=== PATIENT | female | born 1985 | race Caucasian/White ===

== ENCOUNTER → 2020-11-05 | Outpatient (CLI) | payer BC ==
--- NOTE | 2020-11-05 13:33 | P.HPBAR ---
Bariatric H&P - History & Physicial H&P Date: 11/05/20 History & Physicial: Visit/CC: Patient initial contact: Initial weight: Initial weight in pounds: Height: Initial BMI: Last weight: Current weight: Current weight in pounds: Current BMI: [place] body weight (based on NIH guidelines): Excess body weight loss: The patient is a 35 year-old F who presents for Bariatric Assessment. She is looking into the sleeve. No prior weight loss surgery. She has tried Adipex, Weight watchers, keto, and prescription medications for weight loss. Most weight loss is 25 pounds with Adipex. Her dad and father side with obesity. She reports lower back pain, right greater than left knee pain, both ankles, and both hips but denies foot pain. She reports heartburn and she takes over the counter for her symptoms. She has smoked in the past. No chronic diarrhea. Her uncle has Crohns disease. Highest weight is 245 pounds. She reports trouble with sleep and had a sleep apnea study with CPAP machine. She reports DVTs in her mother with brain aneurysm. She denies easy bruising or bleeding. She still has her gallbladder. She denies family history of gallbladder disease. She has excellent control of blood pressure with HCTZ 101/69. [facility] [place] risk [place] describe with any risk of 5.86% Bariatric Checklist Checklist: Plan: Checklist: EGD: 1. Hiatal hernia: 2. H. Pylori: HgbA1c: Vitamin D: Smoking: Primary care physician referral: Psychiatry clearance: Cardiology clearance: Sleep study: Diet journal: VTE risk score: VTE risk level: Rehab needs at discharge:
[2020-11-05 13:39] VITALS: BP 101/69; PULSE 99; RESP 18; TEMP 98.4; BMI 43.0
[2020-11-05 14:48] LABS: HCT 39.2 % (34.0-46.0); HGB 13.7 gm/dL (11.4-16.0); MCH 30.8 pg (25.0-35.0); MCHC 35.1 g/dL (31.0-37.0); MCV 87.7 fL (80.0-100.0); Mean Platelet Volume 6.5; Platelet Count 281 k/uL (150-450); RBC 4.47 m/uL (3.80-5.40); RDW 13.7 % (11.5-15.5); WBC 10.1 k/uL (3.8-10.6)
[2020-11-05 15:03] LABS: INR 0.9 (<1.2); Prothrombin Time 9.8 sec (9.0-12.0)
[2020-11-05 15:04] LABS: Partial Thromboplastin Time 23.4 sec (22.0-30.0)
[2020-11-05 21:01] LABS: Hemoglobin A1C 5.5 % (4.0-6.0)
[2020-11-06 01:10] LABS: Ferritin 47.1 ng/mL (10.0-291.0); Folate, Serum 8.5 ng/mL
[2020-11-06 03:35] LABS: % Iron Saturation 11.4 (12.00-45.00); Albumin 4.4 g/dL (3.80-4.90); Albumin/Globulin Ratio 1.83 (1.60-3.17); Anion Gap 8.9 mmol/L (4.00-12.00); Calcium 9.4 mg/dL (8.7-10.3); Carbon Dioxide 27.1 mmol/L (21.6-31.8); Chol/HDL Ratio 5.75; Globulin 2.4 g/dL (1.6-3.3); Non-African American GFR(CKD) 116.4 (60.0-200.0); Phosphorus 3.9 mg/dL (2.4-5.1); Potassium 3.8 mmol/L (3.5-5.5); Total Bilirubin 0.2 mg/dL (0.3-1.2); Total Protein 6.8 g/dL (6.2-8.2)
[2020-11-07 07:02] LABS: Vit B1(Thiamine) 63 ug/L (38-122)
[2020-11-07 07:21] LABS: Vitamin A 37 ug/dL (38-106)
[2020-11-07 14:18] LABS: Zinc, Serum 42 ug/dL (60-130)
[2020-11-09 16:59] LABS: Selenium 115 mcg/L (63-160)
== END ==
LOC: BARWHC3 12:47
PROVIDERS: ATTEND Surgery Plastic and Reconstructive Surgery
DX: E66.01 Morbid (severe) obesity due to excess calories (principal); E89.1 Postprocedural hypoinsulinemia; D50.8 Other iron deficiency anemias; K90.89 Other intestinal malabsorption; E55.9 Vitamin D deficiency, unspecified; K74.1 Hepatic sclerosis; N19 Unspecified kidney failure; K50.90 Crohn's disease, unspecified, without complications; Z71.51 Drug abuse counseling and surveillance of drug abuser
CPT/HCPCS: 80053; 80061; 82306; 82525; 82607; 82728; 82746; 83036; 83540; 83550; 83721; 83735; 83970; 84100; 84134; 84255; 84425; 84443; 84590; 84630; 85027; 85610; 85730; 93005; 99203

== ENCOUNTER 2020-12-22 07:31 | Day surgery (SDC) | payer BC ==
[2020-12-18 12:05] VITALS: BMI 43.5
[~2020-12-22 07:31] MED LIST: LACTATED RINGERS 1,000 ML IV SCH
--- NOTE | 2020-12-22 07:37 | P.GSHP ---
History of Present Illness H&P Date: 12/22/20 CHIEF COMPLAINT: GERD HISTORY OF PRESENT ILLNESS: The patient is a 35-year-old female who presents reports gastroesophageal reflux disease. Upper endoscopy was offered for further evaluation and management. PAST MEDICAL HISTORY: Please see list. PAST SURGICAL HISTORY: Please see list. MEDICATIONS: Please see list. ALLERGIES: Please see list. SOCIAL HISTORY: No illicit drug use FAMILY HISTORY: No reports of Crohn disease or ulcerative colitis. REVIEW OF ORGAN SYSTEMS: CONSTITUTIONAL: No reports of fevers or chills. GI: Denies any blood in stools or constipation. PHYSICAL EXAM: VITAL SIGNS: Stable GENERAL: Well-developed and pleasant in no acute distress. HEENT: No scleral icterus. Extraocular movements grossly intact. Moist buccal mucosa. NECK: Supple without lymphadenopathy. CHEST: Unlabored respirations. Equal bilateral excursions. CARDIOVASCULAR: Regular rate and rhythm. Distal 2+ pulses. ABDOMEN: Soft, nondistended. MUSCULOSKELETAL: No clubbing, cyanosis, or edema. ASSESSMENT: 1. Gastroesophageal reflux disease PLAN: 1. Recommend proceeding with an upper endoscopy Past Medical History Past Medical History: GERD/Reflux, Hypertension, Skin Disorder, Sleep Apnea/CPAP/BIPAP Additional Past Medical History / Comment(s): basal cell/squamous cell cancer. uses CPAP. bronchitis. History of Any Multi-Drug Resistant Organisms: None Reported Past Surgical History: Adenoidectomy, Tonsillectomy Additional Past Surgical History / Comment(s): wisdom teeth. basal cell/squamous cells removed. Past Anesthesia/Blood Transfusion Reactions: No Reported Reaction Smoking Status: Former smoker - Past Family History Mother Family Medical History: Deep Vein Thrombosis (DVT) Additional Family Medical History / Comment(s): brain aneuyrsm Medications and Allergies Home Medications Medication Instructions Recorded Confirmed Type Multivitamins, Thera [Multivitamin 2 tab PO DAILY 11/05/20 12/18/20 History (formulary)] Sertraline [Zoloft] 200 mg PO QAM 11/05/20 12/18/20 History hydroCHLOROthiazide [Hydrodiuril] 50 mg PO QAM 11/05/20 12/18/20 History Ergocalciferol [Vitamin D2 (1250 50,000 unit PO FR 11/06/20 12/18/20 History Mcg = 92392 Iu)] Ferrous Sulfate [Feosol] 325 mg PO DAILY 12/18/20 12/18/20 History Ubidecarenone [Co Q-10] 100 mg PO DAILY 12/18/20 12/18/20 History Vitamin A Acetate [Vitamin A] 10,000 unit SL DAILY 12/18/20 12/18/20 History Zinc 50 mg PO DAILY 12/18/20 12/18/20 History Allergies Allergy/AdvReac Type Severity Reaction Status Date / Time codeine Allergy Rash and Verified 12/18/20 12:01 nasea tetracycline Allergy Hives and Verified 12/18/20 12:01 nausea
[2020-12-22 08:02] VITALS: RESP 16; TEMP 97.5
[2020-12-22] MEDS ORDERED: LIDOCAINE 1% (10MG/ML) FOR IV START INTRADERMA ONE (08:06)
[2020-12-22] MEDS ORDERED: PROPOFOL 10 MG/ML 20 ML VIAL IV ONE (08:08)
[2020-12-22] MEDS ORDERED: LIDOCAINE 1% INJ 10MG/ML (20 ML MDV) ONE (08:08)
--- NOTE | 2020-12-22 08:21 | P.PCN ---
Date of Procedure: 12/22/20 Description of Procedure: PREOPERATIVE DIAGNOSIS: Gastroesophageal reflux disease. Morbid obesity. POSTOPERATIVE DIAGNOSIS: Morbid obesity. Gastritis. Gastroesophageal reflux disease. Diaphragmatic hiatal hernia OPERATION: Esophagogastroduodenoscopy with biopsies along antrum. SURGEON: Shital Khan MD ANESTHESIA: MAC. INDICATIONS: The patient is a 35-year-old female who presents with a history of reflux disease. Benefits and risks of the procedure were described. Informed consent was obtained. DESCRIPTION: The patient was brought into the endoscopy suite and laid in the left lateral decubitus position. An Olympus gastroscope was passed along the posterior oropharynx down to the distal esophagus where the squamocolumnar junction was encountered at 33 cm from the incisors. The stomach was entered and no bile reflux was found. Additional findings are listed below. Biopsies with cold f orceps were obtained of the antrum. The first through third portion of the duodenum was examined and unremarkable. Retroflexion of the scope confirmed Hill grade 3 lower esophageal valve. The squamocolumnar junction demonstrated LA grade C erosive esophagitis. The stomach was desufflated. The patient tolerated the procedure well. FINDINGS: Squamocolumnar junction 33 cm from the incisors. Diaphragmatic hiatus at 35 cm. Hiatal hernia, 2 cm Hill grade 3 lower esophageal valve. LA grade C erosive esophagitis. No active duodenitis. Chronic gastritis RECOMMENDATIONS: 1. Omeprazole 40 mg daily for 2 weeks described 2. Recommend esophagram to elucidate extent of sliding hiatal hernia Plan - Discharge Summary Discharge Rx Participant: No New Discharge Prescriptions: New Omeprazole [PriLOSEC] 40 mg PO DAILY #14 cap Continue Multivitamins, Thera [Multivitamin (formulary)] 2 tab PO DAILY Ergocalciferol [Vitamin D2 (1250 Mcg = 04309 Iu)] 50,000 unit PO FR Zinc 50 mg PO DAILY hydroCHLOROthiazide [Hydrodiuril] 50 mg PO QAM Sertraline [Zoloft] 200 mg PO QAM Ferrous Sulfate [Iron (65 MG Elemental)] 325 mg PO DAILY Vitamin A Acetate [Vitamin A] 10,000 unit SL DAILY Ubidecarenone [Co Q-10] 100 mg PO DAILY Discharge Medication List Multivitamins, Thera [Multivitamin (formulary)] 2 tab PO DAILY 11/05/20 [History] Sertraline [Zoloft] 200 mg PO QAM 11/05/20 [History] hydroCHLOROthiazide [Hydrodiuril] 50 mg PO QAM 11/05/20 [History] Ergocalciferol [Vitamin D2 (1250 Mcg = 39167 Iu)] 50,000 unit PO FR 11/06/20 [History] Ferrous Sulfate [Iron (65 MG Elemental)] 325 mg PO DAILY 12/18/20 [History] Ubidecarenone [Co Q-10] 100 mg PO DAILY 12/18/20 [History] Vitamin A Acetate [Vitamin A] 10,000 unit SL DAILY 12/18/20 [History] Zinc 50 mg PO DAILY 12/18/20 [History] Omeprazole [PriLOSEC] 40 mg PO DAILY #14 cap 12/22/20 [Rx] [facility]Ref[facility] [place] [facility] [place] [facility]20 Patient Instructions/Handouts: Hiatal Hernia (DC), Gastroesophageal Reflux Disease (DC), Gastritis (DC), Diet for Stomach Ulcers and Gastritis (GEN) Discharge Disposition: HOME SELF-CARE
[2020-12-22 08:39] VITALS: BP 107/72; PULSE 97
== END 2020-12-22 09:00 | disposition home or self-care (01) ==
LOC: ORWHC2ENDO 07:31
PROVIDERS: ATTEND Surgery Plastic and Reconstructive Surgery
DX: K44.9 Diaphragmatic hernia without obstruction or gangrene (principal); J39.2 Other diseases of pharynx; K29.50 Unspecified chronic gastritis without bleeding; I10 Essential (primary) hypertension; Z85.828 Personal history of other malignant neoplasm of skin; Z79.899 Other long term (current) drug therapy; Z88.1 Allergy status to other antibiotic agents; Z88.5 Allergy status to narcotic agent; K21.00 Gastro-esophageal reflux disease with esophagitis, without bleeding; E78.5 Hyperlipidemia, unspecified; G47.30 Sleep apnea, unspecified
CPT/HCPCS: 81025; 88305; 88342; 43239; J2001; J2704

== ENCOUNTER → 2021-01-08 | Outpatient (CLI) | payer BC ==
--- NOTE | 2021-01-08 11:34 | FL ---
EXAMINATION TYPE: FL barium swallow DATE OF EXAM: 01/08/2021 CLINICAL INDICATION: 35-year-old female R13.10, dysphasia. Nausea/vomiting and complaint of reflux. E ndoscopy 3 weeks ago showed a hiatal hernia and a polyp in the throat. COMPARISON: None Total Fluoroscopy Time: 1 minute 56 seconds 34 images obtained. FINDINGS: The swallowing mechanism is normal and hypopharyngeal anatomy is preserved. Unable to clearly identi fy any suspicious polyp or space-occupying mucosal lesion. The cervical and thoracic portions have a normal course and caliber and normal motility. The mucosa is normal and no persistent filling defect is encountered. There is a small sliding hiatal hernia demonstrated. Gastroesophageal reflux could not be elicited by Valsalva or positional maneuvers IMPRESSION: 1. Small sliding hiatal hernia. We were unable to elicit gastroesophageal reflux during the course of the exam. 2. Patient's reported throat polyp not clearly identified but can be better assessed by ENT.
== END | disposition home or self-care (01) ==
LOC: RADUSWWP 09:55
PROVIDERS: ATTEND Surgery Plastic and Reconstructive Surgery
DX: K44.9 Diaphragmatic hernia without obstruction or gangrene (principal); R13.10 Dysphagia, unspecified
CPT/HCPCS: 74220

== ENCOUNTER → 2021-03-30 | Outpatient (CLI) | payer BC ==
[2021-03-30 14:24] VITALS: BMI 44.9
== END ==
LOC: BARWHC3 08:32
PROVIDERS: ATTEND Surgery Plastic and Reconstructive Surgery
DX: E66.01 Morbid (severe) obesity due to excess calories (principal); Z71.3 Dietary counseling and surveillance
CPT/HCPCS: 97804

== ENCOUNTER → 2021-05-05 | Outpatient (CLI) | payer BC ==
[2021-05-05 11:15] LABS: Basophils # (A) 0.1 k/uL (0-0.2); Basophils % (A) 1 %; Eosinophils # (A) 0.2 k/uL (0-0.7); Eosinophils % (A) 2 %; HCT 42.7 % (34.0-46.0); HGB 14.5 gm/dL (11.4-16.0); Lymphocytes # (A) 2.5 k/uL (1.0-4.8); Lymphocytes % (A) 26 %; MCH 30.9 pg (25.0-35.0); MCHC 33.8 g/dL (31.0-37.0); MCV 91.4 fL (80.0-100.0); Mean Platelet Volume 6.6; Monocytes # (A) 0.5 k/uL (0-1.0); Monocytes % (A) 6 %; Neutrophils # (A) 5.9 k/uL (1.3-7.7); Neutrophils % (A) 62 %; Platelet Count 295 k/uL (150-450); RBC 4.67 m/uL (3.80-5.40); RDW 14.1 % (11.5-15.5); WBC 9.4 k/uL (3.8-10.6)
[2021-05-05 11:37] LABS: ALT 31 U/L (4-34); AST 29 U/L (14-36); African American GFR (CKD) >90 (>60 ml/min/1.73 sqM); Albumin 4.1 g/dL (3.5-5.0); Alkaline Phosphatase 45 U/L (38-126); Anion Gap 8 mmol/L; Blood Urea Nitrogen 11 mg/dL (7-17); Calcium 9.7 mg/dL (8.4-10.2); Carbon Dioxide 26 mmol/L (22-30); Chloride 102 mmol/L (98-107); Glucose 87 mg/dL (74-99); Non-African American GFR(CKD) >90 (>60 ml/min/1.73 sqM); Potassium 4.3 mmol/L (3.5-5.1); Sodium 136 mmol/L (137-145); Total Bilirubin 0.2 mg/dL (0.2-1.3); Total Protein 7.1 g/dL (6.3-8.2)
== END | disposition home or self-care (01) ==
LOC: LABPAT 09:23
PROVIDERS: ATTEND Surgery Plastic and Reconstructive Surgery
DX: Z01.812 Encounter for preprocedural laboratory examination (principal)
CPT/HCPCS: 36415; 80053; 85025

== ENCOUNTER 2021-05-11 10:03 | Inpatient (IN) | payer BC ==
[~2021-05-11 10:03] MED LIST changes: +CHLORHEXIDINE GLUCONATE 15 ML CUP MUCOUS MEM PRN; +DEXAMETHASONE SOD PHOSPHATE 4 MG/ML 1 ML VIAL IV ONE; +ENOXAPARIN 40 MG/0.4 ML SYRINGE SQ PRN; -LACTATED RINGERS 1,000 ML IV SCH; +LIDOCAINE 1% (10MG/ML) FOR IV START INTRADERMA PRN; +MIDAZOLAM 2 MG/2 ML VIAL IV PRN; +ONDANSETRON 4 MG/2 ML VIAL IVP ONE; +PANTOPRAZOLE 40 MG/10 ML VIAL IVP PRN
[2021-05-11] MEDS: LACTATED RINGERS 1,000 ML IV SCH (10:40)
[2021-05-11 10:42] LABS: Glucose,Whole Blood 101 mg/dL (75-99)
--- NOTE | 2021-05-11 10:47 | P.GSHP ---
History of Present Illness H&P Date: 05/11/21 CHIEF COMPLAINT: Morbid obesity. HISTORY OF PRESENT ILLNESS: Margaret Woodruff is a 35-year-old female who comes with lifelong morbid obesity. She is looking into the sleeve gastrectomy. As a result of her morbid obesity, she has developed osteoarthritis of the knees, lower back, hips, sleep apnea and hypertensive heart disease. At height of 5 feet 2.5 inches, her ideal body weight is 135 pounds. Her highest weight is 245 pounds and body mass index of 44.2. PAST MEDICAL HISTORY: 1. Morbid obesity due to excess calories 2. Body mass index of 44.2, initial 3. Osteoarthritis of the knees. 4. Osteoarthritis of the lower back. 5. Osteoarthritis of the ankles 6. Osteoarthritis of the hips 7. Hypertensive heart disease. 8. Gastroesophageal reflux disease 9. Obstructive sleep apnea 10. Basal cell skin cancer 11. Generalized anxiety disorder 12. Depressive disorder PAST SURGICAL HISTORY: 1. Adenoidectomy 2. Tonsillectomy HOME MEDICATIONS: Home Medications Medication Instructions Recorded Confirmed Multivitamins, Thera [Multivitamin 2 tab PO DAILY 11/05/20 12/31/20 (formulary)] Sertraline [Zoloft] 200 mg PO QAM 11/05/20 12/31/20 hydroCHLOROthiazide [Hydrodiuril] 50 mg PO QAM 11/05/20 12/31/20 Ergocalciferol [Vitamin D2 (1250 50,000 unit PO FR 11/06/20 12/31/20 Mcg = 92630 Iu)] Ferrous Sulfate [Iron (65 MG 325 mg PO DAILY 12/18/20 12/31/20 Elemental)] Ubidecarenone [Co Q-10] 100 mg PO DAILY 12/18/20 12/31/20 Vitamin A Acetate [Vitamin A] 10,000 unit SL DAILY 12/18/20 12/31/20 Zinc 50 mg PO DAILY 12/18/20 12/31/20 Previous Rx's Medication Instructions Recorded Omeprazole [PriLOSEC] 40 mg PO DAILY #14 cap 12/22/20 ALLERGIES: Allergies Allergy/AdvReac Type Severity Reaction Status Date / Time codeine Allergy Rash and Verified 12/31/20 13:32 nasea tetracycline Allergy Hives and Verified 12/31/20 13:32 nausea SOCIAL HISTORY: Past tobacco use. FAMILY HISTORY: No family history of ulcerative colitis disease or Crohn's disease. Family history of morbid obesity. No lupus in the family. No reports of stomach or esophageal cancer. Her dad and on her father side has obesity. Her uncle has Crohns disease. She reports DVTs in her mother with brain aneurys REVIEW OF ORGAN SYSTEMS: CONSTITUTIONAL: At height of 5 feet 2.5 inches, her ideal body weight is 135 pounds. Her highest weight is 245 pounds and body mass index of 44.2. HEENT: Denies any active troubles with vision or hearing. ENDOCRINE: Has diabetes. No hypothyroidism. CARDIOVASCULAR: Denies reports of palpitations or heart attacks or chest pain. Has hypertensive heart disease. RESPIRATORY: Has obstructive sleep apnea. GASTROINTESTINAL: Denies any bright red blood per rectum. No diarrhea. No constipation. Has gastroesophageal reflux disease. GENITOURINARY: No recent blood in urine MUSCULOSKELETAL: Has lower back pain and joint pain. Has osteoarthritis of the knees. NEURO: No headaches. No seizure disorders. PSYCH: Has depression. No suicidal ideation. Has anxiety. RHEUMATOLOGIC: No lupus. No rheumatoid arthritis. HEMATOLOGIC: Denies any abnormal bleeding or bruising. SKIN: No rash. Past basal cell skin cancer. PHYSICAL EXAM: VITAL SIGNS: Height 5 foot 2.5 inches, weight 238 pounds. BMI 42.8 GENERAL: Well-developed in no acute distress. HEENT: No scleral icterus. Extraocular movements grossly intact. Hears conversational speech. No nasal drainage. NECK: Supple without lymphadenopathy. CHEST: Nonlabored respirations with equal bilateral excursions. CARDIOVASCULAR: Regular rate and regular rhythm. Distal 2+ pulses. ABDOMEN: Obese, soft, nontender, nondistended. MUSCULOSKELETAL: No clubbing, cyanosis. NEURO: No focal or lateralizing signs. Cranial nerves 2 through 12 grossly within normal limits. PSYCH: Appropriate affect. Alert and oriented to person, place and time. SKIN: Good skin turgor. Well perfused. EGD FINDINGS: Squamocolumnar junction 33 cm from the incisors. Diaphragmatic hiatus at 35 cm. Hiatal hernia, 2 cm Hill grade 3 lower esophageal valve. LA grade C erosive esophagitis. No active duodenitis. Chronic gastritis Oropharyngeal polyp along posterior oropharynx, 5 mm Final Pathologic Diagnosis STOMACH, ANTRUM, BIOPSY: Mild chronic and active gastritis with erosion. Immunostain with appropriate controls negative for Helicobacter organisms. ASSESSMENT: 1. Morbid obesity due to excess calories 2. Body mass index of 44.2, initial now 42.8 3. Osteoarthritis of the knees. 4. Osteoarthritis of the lower back. 5. Osteoarthritis of the ankles 6. Osteoarthritis of the hips 7. Hypertensive heart disease. 8. Gastroesophageal reflux disease 9. Obstructive sleep apnea 10. Basal cell skin cancer 11. Generalized anxiety disorder 12. Depressive disorder 13. Hiatal hernia 14. Oropharyngeal polyp 15. Hypertriglyceridemia. 16. Iron deficiency anemia 17. Vitamin A deficiency 18. Zinc deficiency 19. Dietary surveillance and counseling. PLAN: 1. Bariatric options between a sleeve, band and a Rashaad-en-Y gastric bypass were reviewed in detail. The patient elected for a sleeve gastrectomy. Robotic assisted approach described. 2. The [place] [facility] Data was also reviewed with benefits and risks as described. 3. An 8 page second-generation bariatric consent form was reviewed in detail including potential of bleeding, infection, leaks, adequate weight loss, nutritional deficiencies which the patient demonstrated understanding of the risks. 4. A 2 week high-protein low caloric 800 kcal diet described to address hepatomegaly. 5. Preoperative labs including complete metabolic panel and CBC with type and screen recommended. 6. DVT prophylaxis per [place] [facility]. 7. Antibiotic prophylaxis. 8. Inpatient hospitalization anticipated for more than 2 nights. 9. All questions and concerns were addressed with the patient. Past Medical History Past Medical History: Cancer, GERD/Reflux, Hypertension, Skin Disorder, Sleep Apnea/CPAP/BIPAP Additional Past Medical History / Comment(s): basal cell/squamous cell cancer. uses CPAP. bronchitis. History of Any Multi-Drug Resistant Organisms: None Reported Past Surgical History: Adenoidectomy, Tonsillectomy Additional Past Surgical History / Comment(s): wisdom teeth. basal cell/squamous cells removed. polyp removed 2020 in back of throat. EGD, Past Anesthesia/Blood Transfusion Reactions: Previous Problems w/ Anesthesia Additional Past Anesthesia/Blood Transfusion Reaction / Comment(s): STATES HAD POST SUCCINYLOCHOLINE MYALGIA ONE TIME DURING POLYPS BEING REMOVED FROM THROAT Smoking Status: Former smoker - Past Family History Mother Family Medical History: Deep Vein Thrombosis (DVT) Additional Family Medical History / Comment(s): brain aneuyrsm Medications and Allergies Home Medications Medication Instructions Recorded Confirmed Type Multivitamins, Thera [Multivitamin 2 tab PO DAILY 11/05/20 05/11/21 History (formulary)] Sertraline [Zoloft] 200 mg PO QAM 11/05/20 05/11/21 History hydroCHLOROthiazide [Hydrodiuril] 50 mg PO QAM 11/05/20 05/11/21 History Ergocalciferol [Vitamin D2 (1250 50,000 unit PO FR 11/06/20 05/11/21 History Mcg = 50754 Iu)] Ferrous Sulfate [Iron (65 MG 325 mg PO DAILY 12/18/20 05/11/21 History Elemental)] Ubidecarenone [Co Q-10] 100 mg PO DAILY 12/18/20 05/11/21 History Vitamin A Acetate [Vitamin A] 10,000 unit SL DAILY 12/18/20 05/11/21 History Zinc 50 mg PO DAILY 12/18/20 05/11/21 History Omeprazole [PriLOSEC] 40 mg PO DAILY #14 cap 12/22/20 05/11/21 Rx Allergies Allergy/AdvReac Type Severity Reaction Status Date / Time codeine Allergy Rash and Verified 05/11/21 10:25 nasea tetracycline Allergy Hives and Verified 05/11/21 10:25 nausea Surgical - Exam Vital Signs Temp Pulse Resp BP Pulse Ox 98.6 F 95 18 147/70 95 05/11/21 10:32 05/11/21 10:32 05/11/21 10:32 05/11/21 10:32 05/11/21 10:32 Results - Labs Abnormal Lab Results - Last 24 Hours (Table) 05/11/21 Range/Units 10:40 POC Glucose (mg/dL) 101 H (75-99) mg/dL
[2021-05-11] MEDS ORDERED: SCOPOLAMINE 1.5MG/72HR PATCH TRANSDERM ONE (11:12)
[2021-05-11] MEDS ORDERED: PHENYLEPHRINE-0.9% NACL SYG 1,000 MCG/10 ML SYRINGE ONE (11:20)
[2021-05-11] MEDS ORDERED: NEOSTIGMINE 1 MG/ML 10 ML VIAL ONE (11:20)
[2021-05-11] MEDS ORDERED: MIDAZOLAM 2 MG/2 ML VIAL ONE (11:20)
[2021-05-11] MEDS ORDERED: ROCURONIUM 10 MG/ML (5 ML VIAL) IV ONE (11:20)
[2021-05-11] MEDS ORDERED: LIDOCAINE 1% INJ 10MG/ML (20 ML MDV) ONE (11:20)
[2021-05-11] MEDS ORDERED: HYDROmorphone (PF) 1 MG/ML ONE (11:20)
[2021-05-11] MEDS ORDERED: fentaNYL (PF) 50 MCG/ML 2 ML AMP ONE (11:20)
[2021-05-11] MEDS ORDERED: PROPOFOL 10 MG/ML 20 ML VIAL IV ONE (11:20)
[2021-05-11] MEDS ORDERED: GLYCOPYRROLATE 0.2 MG/ML 2 ML VIAL ONE (11:20)
[2021-05-11] MEDS ORDERED: BUPIVACAIN-EPI 0.25%-1:200,000 30 ML VIAL SQ ONE (11:24)
[2021-05-11] MEDS ORDERED: LACTATED RINGERS 1,000 ML IV ONE (12:15)
[2021-05-11] MEDS ORDERED: diphenhydrAMINE 50 MG/ML 1 ML VIAL IVP PRN (13:02)
[2021-05-11] MEDS ORDERED: NALOXONE 0.4 MG/ML 1 ML VIAL IV PRN (13:02)
[2021-05-11] MEDS ORDERED: DEXAMETHASONE SOD PHOSPHATE 10 MG/ML 1 ML VIAL IVP PRN (13:05)
--- NOTE | 2021-05-11 13:18 | P.OP ---
Date of Procedure: 05/11/21 Description of Procedure: SURGEON: DEEP ORELLANA MD PREOPERATIVE DIAGNOSES: 1. Morbid obesity due to excess calories 2. Body mass index of 45.2 3. Osteoarthritis of the knees. 4. Osteoarthritis of the lower back. 5. Osteoarthritis of the ankles 6. Osteoarthritis of the hips 7. Hypertensive heart disease. 8. Gastroesophageal reflux disease 9. Obstructive sleep apnea 10. Basal cell skin cancer 11. Generalized anxiety disorder 12. Depressive disorder 13. Hiatal hernia 14. Oropharyngeal polyp 15. Hypertriglyceridemia. 16. Iron deficiency anemia 17. Vitamin A deficiency 18. Zinc deficiency 19. Dietary surveillance and counseling. POSTOPERATIVE DIAGNOSES: 1. Morbid obesity due to excess calories 2. Body mass index of 45.2 3. Osteoarthritis of the knees. 4. Osteoarthritis of the lower back. 5. Osteoarthritis of the ankles 6. Osteoarthritis of the hips 7. Hypertensive heart disease. 8. Gastroesophageal reflux disease 9. Obstructive sleep apnea 10. Basal cell skin cancer 11. Generalized anxiety disorder 12. Depressive disorder 13. Hiatal hernia 14. Oropharyngeal polyp 15. Hypertriglyceridemia. 16. Iron deficiency anemia 17. Vitamin A deficiency 18. Zinc deficiency 19. Dietary surveillance and counseling. 20. Non-compliance to bariatric diet 22. Moderat hepatomegaly with fatty liver disease. OPERATION: 1. Robotic assisted daVinci Xi laparoscopic sleeve gastrectomy with 40-Angolan bougie, multiport. 2. Intraoperative esophagogastroduodenoscopy. ANESTHESIA: Gen. local anesthetic ESTIMATED BLOOD LOSS: 5 mL SPECIMENS REMOVED: Sleeve gastrectomy COMPLICATIONS: None. FINDINGS: 1. Negative intraoperative esophagogastrojejunoscopy leak test. 2. Moderate to severe hepatomegaly due to non-compliance 3. Total of 7 staplers used including 3 - 60 mm blue robot deedee and 4 - 60 mm green robot loads used to create the gastric sleeve. 4. Sleeve gastrectomy, 29 x 6 cm 5. Large hiatus hernia. INDICATIONS: Margaret Woodruff is a 35-year-old female who comes with lifelong morbid obesity. She is looking into the sleeve gastrectomy. As a result of her morbid obesity, she has developed osteoarthritis of the knees, lower back, hips, sleep apnea and hypertensive heart disease. At height of 5 feet 2.5 inches, her ideal body weight is 135 pounds. Her highest weight is 252 pounds due to non-compliance of her bariatric diet. Her body mass index of 45.4. She is 117 pounds overweight. All surgical options for morbid obesity had been described using the [place] bariatric surgery collaborative comorbidity resolution including complication risk score. A second-generation bariatric consent form was described in detail including the possibility of protein malnutrition, leaks, gastric stricture, venous thrombosis, gastroesophageal reflux disease, need for further surgery for which she demonstrated understanding. Benefits and risks of the procedure were described at length. Informed consent was obtained. DESCRIPTION: The patient was brought into the operating room theater. Preoperatively she had received Lovenox subcutaneously for DVT prophylaxis. Additionally she had Peridex oral solution as an oral decontaminant. After general induction, the abdomen was prepped and draped in standard sterile fashion. An Ioban draping was placed along the abdomen. A robotic da Merlin Xi system was prepped and primed. At 15 cm from the xiphoid, proposed port sites were marked with indelible marker along the anterior axillary line bilaterally, mid axillary line bilaterally with each ports were marked 10 to 15 cm from each other. The robotic stapler port was marked for the right midclavicular line. A 5 mm 0 degrees laparoscopic trocar entry was performed along the left upper quadrant. The abdomen was insufflated to 15 mmHg pressure was tolerated well. Diagnostic laparoscopy demonstrated no injury to bowel, viscera, or mesentery. No evidence of large hiatus hernia was identified. The liver had moderate to severe fatty liver disease with hepatomegaly adding complexity to the case. A 8 mm port was placed along the left upper abdominal wall after exchanging the 5 mm port. A separate 8 mm port was placed along the left lateral abdominal wall. Please note that the ports were placed at least 20 cm away from the target anatomy. Care was taken to check each robotic arms were safely away from collision with the bed or the patient. At the epigastrium, a medium sized Daniele liver retractor was placed under direct visualization with the [employer] placed under the right shoulder of the patient. Next, 12-mm robot stapler port was placed along the right upper quadrant. The camera 8-mm port was maintained along the epigastrium. The patient was repositioned in reverse Trendelenburg position at 21-degrees after lowering the bed. The robot was docked along the left side of the patient. Using a grasper for arm 4, a vessel sealer for arm 3, including grasper for arm 1, the robotic system was docked and primed as described. Instruments were interchanged by the resident assistant cna for stapler loads. The camera was placed at 30- degrees down. I had sat at the console. The pylorus was identified and 6 cm proximally along the greater curvature of the stomach, the short gastrics were mobilized upwards to the angle of His using a vessel sealer. Hemostasis was excellent during this portion of the procedure. Next, the upper pole of the stomach was adherent to the left guido, which was gently dissected free using atraumatic grasper. I went to the head of the bed and placed 40-Angolan blunt bougie into the stomach. The bougie was readjusted by the nurse amphibian crewmember. Robotic stapler green load 60 mm 4 followed by blue 60 mm x 3 loads were used to create the sleeve. Initial firing was across the antrum of the stomach towards the angle of His. The staple line was linear without corkscrewing. The space from the angularis incisura of the sleeve was approximately 4 cm. I then went to the head of the bed to perform the intraoperative esophagogastroduodenoscopy leak test. The bougie was withdrawn. The upper pole of the stomach was bathed using normal saline solution. The scope was withdrawn with careful inspection along the staple line for which no leaks were found along the entire length. Additionally,the sleeve was completely hemostatic without any encroachment along the angularis incisura. Its topology was a soft "J". No stricture was encountered upon placement of the scope. The GI tract was desufflated. The patient tolerated this portion of the procedure well. The scope was completely withdrawn. The robot was undocked. I then rescrubbed into case, whereby the irrigation fluid was aspirated from the abdominal cavity. Tisseel fibrin sealant was placed along the entire staple length. Once dried the Daniele liver retractor was removed. Attention was now brought to removal of the specimen. The distal end of the sleeve gastrectomy specimen was brought out through the 12 mm port at the left upper quadrant. The specimen was gently removed en total. No contamination had occurred during this process. All instruments and pneumoperitoneum including irrigation fluid was removed from the abdominal cavity. The 12 mm port site was closed using 0-Vicryl and Des Ann and irrigated with diluted hydrogen peroxide. The final incisions were closed using subcuticular interrupted suture of 4-0 Monocryl. Exofin was applied to the skin once the skin had been cleansed. OptiFoam dressing was placed along the stomach extraction site. The sleeve specimen was measured and checked also for leaks which none were found. At the end of the procedure, needle, sponge, and instrument count was verified correct by the medical surgical tech. The patient was taken to the postanesthesia care unit in stable condition.
[2021-05-11] MEDS: HYDROmorphone 0.5 MG/0.5 ML SYRINGE IVP PRN ×3 (13:41→14:20)
[2021-05-11] MEDS ORDERED: KETOROLAC 30 MG/ML 1 ML VIAL ONE (13:59)
[2021-05-11] MEDS: KETOROLAC 30 MG/ML 1 ML VIAL IVP SCH ×2 (14:02→17:55)
[2021-05-11] MEDS: ONDANSETRON 4 MG/2 ML VIAL IVP SCH (14:46)
[2021-05-11] MEDS ORDERED: ONDANSETRON 4 MG/2 ML VIAL ONE (14:48)
[2021-05-11] MEDS: ALBUTEROL NEBULIZED 2.5 MG/3 ML INHALATION SCH ×2 (17:36→19:19)
[2021-05-11] MEDS: HYOSCYAMINE ORAL DROPS 1.875 MG/15 ML BOTTLE PO SCH (17:54)
[2021-05-11] MEDS: ACETAMINOPHEN IV (For NPO) 1,000 MG in EMPTY BAG 1 BAG IVPB SCH (17:54)
[2021-05-11] MEDS: SIMETHICONE 40 MG/0.6 ML DROPS 2,000 MG/30 ML BOTTLE PO SCH (17:54)
[2021-05-11] MEDS: 0.9% NACL WITH KCL 20 MEQ/L 1,000 ML IV SCH (17:54)
[2021-05-11] MEDS: DEXAMETHASONE SOD PHOSPHATE 4 MG/ML 1 ML VIAL IVP SCH (17:55)
[2021-05-11] MEDS: HYDROmorphone 1 MG/ML 1 ML SYRINGE IVP PRN (22:03)
[2021-05-12] MEDS: 0.9% NACL WITH KCL 20 MEQ/L 1,000 ML IV SCH ×4 (00:20→11:53)
[2021-05-12] MEDS: ACETAMINOPHEN IV (For NPO) 1,000 MG in EMPTY BAG 1 BAG IVPB SCH ×3 (00:20→12:00)
[2021-05-12] MEDS: DEXAMETHASONE SOD PHOSPHATE 4 MG/ML 1 ML VIAL IVP SCH ×4 (00:21→16:57)
[2021-05-12] MEDS: ONDANSETRON 4 MG/2 ML VIAL IVP SCH ×4 (00:21→17:08)
[2021-05-12] MEDS: KETOROLAC 30 MG/ML 1 ML VIAL IVP SCH ×4 (00:22→16:58)
[2021-05-12] MEDS: SIMETHICONE 40 MG/0.6 ML DROPS 2,000 MG/30 ML BOTTLE PO SCH ×4 (00:24→17:07)
[2021-05-12] MEDS: HYOSCYAMINE ORAL DROPS 1.875 MG/15 ML BOTTLE PO SCH ×4 (00:25→17:07)
[2021-05-12] MEDS: ALBUTEROL NEBULIZED 2.5 MG/3 ML INHALATION SCH ×4 (07:32→19:39)
[2021-05-12 09:21] LABS: Basophils # (A) 0.01 X 10*3/uL (0.00-0.10); Basophils % (A) 0.1 %; Eosinophils # (A) 0 X 10*3/uL (0.04-0.35); Eosinophils % (A) 0 %; HCT 38.5 % (37.2-46.3); HGB 12.6 g/dL (12.0-15.0); Lymphocytes # (A) 0.81 X 10*3/uL (0.90-5.00); Lymphocytes % (A) 6.4 %; MCH 30.3 pg (27.0-32.0); MCHC 32.7 g/dL (32.0-37.0); MCV 92.5 fL (80.0-97.0); Monocytes # (A) 0.49 X 10*3/uL (0.20-1.00); Monocytes % (A) 3.9 %; Neutrophils # (A) 11.34 X 10*3/uL (1.80-7.70); Neutrophils % (A) 89.1 %; Platelet Count 258 X 10*3/uL (140-440); RBC 4.16 X 10*6/uL (4.10-5.20); RDW 13.9 % (11.5-14.5); WBC 12.71 X 10*3/uL (4.50-10.00)
[2021-05-12 09:36] LABS: African American GFR (CKD) 128.3 (60.0-200.0); Anion Gap 9.5 mmol/L (10.00-18.00); Blood Urea Nitrogen 10.3 mg/dL (9.0-27.0); Calcium 8.7 mg/dL (8.7-10.3); Carbon Dioxide 23.5 mmol/L (20.0-27.5); Magnesium 2.4 mg/dL (1.5-2.4); Non-African American GFR(CKD) 110.7 (60.0-200.0); Phosphorus 3.8 mg/dL (2.4-5.1); Potassium 4.8 mmol/L (3.5-5.5)
[2021-05-12] MEDS: ENOXAPARIN 40 MG/0.4 ML SYRINGE SQ SCH (09:56)
[2021-05-12] MEDS: PANTOPRAZOLE 40 MG/10 ML VIAL IV SCH (09:58)
[2021-05-12] MEDS: LACTATED RINGERS 1,000 ML IV SCH (10:03)
[2021-05-12] MEDS: HYDROmorphone 1 MG/ML 1 ML SYRINGE IVP PRN ×2 (10:23→22:35)
[2021-05-12 15:05] VITALS: BMI 45.3
--- NOTE | 2021-05-12 15:17 | P.PN ---
Subjective Progress Note Date: 05/12/21 CHIEF COMPLAINT: Morbid obesity HISTORY OF PRESENT ILLNESS: Patient is status post robotic-assisted laparoscopic sleeve gastrectomy. Patient is complaining of abdominal pain. She did have some nausea earlier this morning. No vomiting. She has been up and ambulating. No flatus. She is urinating without difficulty. Afebrile. WBC 12.71 Hgb 12.6 platelets 258 sodium 137 potassium 4.8 BUN 10.3 creatinine 0.7 magnesium 2.4 final upper GI results are pending. Reviewed upper GI imaging with Dr. Aleksandar martinez. PHYSICAL EXAM: VITAL SIGNS: Reviewed GENERAL: Well-developed in no acute distress. HEENT: No sclera icterus. Extraocular movements grossly intact. Moist buccal mucosa. Head is atraumatic, normocephalic. Hears conversational speech. No nasal drainage. NECK: Supple without lymphadenopathy. CHEST: Non-labored respirations and equal bilateral excursions. CARDIOVASCULAR: Palpable 2+ radial pulses. ABDOMEN: Soft. Nondistended. Incision sites clean dry and intact MUSCULOSKELETAL: No clubbing or cyanosis. NEUROLOGIC: No focal or lateralizing signs. Cranial nerves II through XII grossly intact. PSYCH: Appropriate affect. Alert and oriented to person, place and time. SKIN: Well perfused. Good skin turgor. ASSESSMENT: 1. Morbid obesity due to excess calories 2. Body mass index of 45.2 3. Osteoarthritis of the knees. 4. Osteoarthritis of the lower back. 5. Osteoarthritis of the ankles 6. Osteoarthritis of the hips 7. Hypertensive heart disease. 8. Gastroesophageal reflux disease 9. Obstructive sleep apnea 10. Basal cell skin cancer 11. Generalized anxiety disorder 12. Depressive disorder 13. Hiatal hernia 14. Oropharyngeal polyp 15. Hypertriglyceridemia. 16. Iron deficiency anemia 17. Vitamin A deficiency 18. Zinc deficiency 19. Dietary surveillance and counseling. 20. Non-compliance to bariatric diet 22. Moderat hepatomegaly with fatty liver disease. 23. Leukocytosis possibly steroid related PLAN: -Okay to start bariatric clear liquid diet -Follow-up on upper GI results -Continue IV fluids -Continue pain medication as needed -Continue Mylicon drops -Encourage patient to ambulate and to use incentive spirometer Physician Electrical Contractor note has been reviewed by physician. Signing provider agrees with the documented findings, assessment, and plan of care. Objective - Vital Signs Vital signs: Vital Signs Temp 98.0 F 05/12/21 08:00 Pulse 85 05/12/21 11:33 Resp 16 05/12/21 08:00 BP 102/63 05/12/21 08:00 Pulse Ox 94 L 05/12/21 08:00 Intake & Output 05/11/21 05/12/21 05/12/21 18:59 06:59 18:59 Intake Total 1800 Output Total 5 Balance 1795 Weight 114.4 kg 114.4 kg Intake: IV 1800 Output: Estimated Blood Loss 5 Other: # Voids 3 # Bowel Movements 0 - Labs CBC & Chem 7: 05/12/21 05:11 05/12/21 05:11 Labs: Abnormal Lab Results - Last 24 Hours (Table) 05/12/21 05/12/21 Range/Units 05:11 05:11 WBC 12.71 H (4.50-10.00) X 10*3/uL MPV 9.0 L (9.5-12.2) fL Immature Gran # 0.06 H (0.00-0.04) X 10*3/uL Neutrophils # 11.34 H (1.80-7.70) X 10*3/uL Lymphocytes # 0.81 L (0.90-5.00) X 10*3/uL Eosinophils # 0 L (0.04-0.35) X 10*3/uL Anion Gap 9.50 L (10.00-18.00) mmol/L
--- NOTE | 2021-05-12 15:41 | FL ---
EXAMINATION TYPE: FL UGI DATE OF EXAM: 05/12/2021 COMPARISON: 01/08/2021 HISTORY: Postop bariatric surgery TECHNIQUE: A single contrast UGI study is performed. FINDINGS: Contrast passes from the distal esophagus through the gastric sleeve with severe hesitancy. No extrav asation of contrast is evident. During the initial portion of the examination no contrast passing thr ough the gastric sleeve is evident. Overhead radiographs were obtained which demonstrated contrast wi thin the gastric sleeve in distal stomach. A repeat fluoroscopy didn't demonstrate contrast within th e gastric sleeve following the overhead radiographs. No free air is noted during this examination. Overhead radiographs were obtained which are unremarkable. IMPRESSIONS: 1. Severe hesitancy of contrast passing through the gastric sleeve. However, no extravasation or susp icious persistent narrowing is identified.
[2021-05-13] MEDS: KETOROLAC 30 MG/ML 1 ML VIAL IVP SCH ×3 (00:39→12:41)
[2021-05-13] MEDS: DEXAMETHASONE SOD PHOSPHATE 4 MG/ML 1 ML VIAL IVP SCH ×3 (00:39→12:42)
[2021-05-13] MEDS: SIMETHICONE 40 MG/0.6 ML DROPS 2,000 MG/30 ML BOTTLE PO SCH ×3 (00:40→12:43)
[2021-05-13] MEDS: ONDANSETRON 4 MG/2 ML VIAL IVP SCH ×3 (00:40→12:41)
[2021-05-13] MEDS: HYOSCYAMINE ORAL DROPS 1.875 MG/15 ML BOTTLE PO SCH ×3 (00:41→12:42)
[2021-05-13] MEDS: 0.9% NACL WITH KCL 20 MEQ/L 1,000 ML IV SCH (00:42)
[2021-05-13] MEDS: HYDROmorphone 1 MG/ML 1 ML SYRINGE IVP PRN (04:50)
[2021-05-13] MEDS ORDERED: bisacodyL 5 MG TABLET.DR PO PRN (08:00)
[2021-05-13] MEDS: ALBUTEROL NEBULIZED 2.5 MG/3 ML INHALATION SCH ×2 (08:44→13:26)
[2021-05-13 08:48] VITALS: RESP 18
[2021-05-13 08:54] VITALS: BP 101/66; TEMP 98.1
[2021-05-13 08:58] VITALS: PULSE 62
[2021-05-13] MEDS: LACTATED RINGERS 1,000 ML IV SCH (09:07)
[2021-05-13 09:12] LABS: Basophils # (A) 0.01 X 10*3/uL (0.00-0.10); Basophils % (A) 0.1 %; Eosinophils # (A) 0 X 10*3/uL (0.04-0.35); Eosinophils % (A) 0 %; HCT 38.5 % (37.2-46.3); HGB 12.3 g/dL (12.0-15.0); Lymphocytes # (A) 1.19 X 10*3/uL (0.90-5.00); Lymphocytes % (A) 10.2 %; MCH 30.1 pg (27.0-32.0); MCHC 31.9 g/dL (32.0-37.0); MCV 94.4 fL (80.0-97.0); Monocytes # (A) 0.54 X 10*3/uL (0.20-1.00); Monocytes % (A) 4.6 %; Neutrophils # (A) 9.87 X 10*3/uL (1.80-7.70); Neutrophils % (A) 84.4 %; Platelet Count 264 X 10*3/uL (140-440); RBC 4.08 X 10*6/uL (4.10-5.20); WBC 11.69 X 10*3/uL (4.50-10.00)
[2021-05-13] MEDS: ENOXAPARIN 40 MG/0.4 ML SYRINGE SQ SCH (09:22)
[2021-05-13] MEDS: PANTOPRAZOLE 40 MG/10 ML VIAL IV SCH (09:22)
[2021-05-13] MEDS: SODIUM CHLORIDE 0.9% 1,000 ML IV SCH ×2 (10:30→11:37)
--- NOTE | 2021-05-13 13:17 | P.DS ---
Providers Date of admission: 05/11/21 10:03 Expected date of discharge: 05/13/21 Attending physician: Shital Khan Primary care physician: Marv Ingram Hospital Course: Discharge diagnosis 1. Morbid obesity due to excess calories 2. Body mass index of 45.2 3. Osteoarthritis of the knees. 4. Osteoarthritis of the lower back. 5. Osteoarthritis of the ankles 6. Osteoarthritis of the hips 7. Hypertensive heart disease. 8. Gastroesophageal reflux disease 9. Obstructive sleep apnea 10. Basal cell skin cancer 11. Generalized anxiety disorder 12. Depressive disorder 13. Hiatal hernia 14. Oropharyngeal polyp 15. Hypertriglyceridemia. 16. Iron deficiency anemia 17. Vitamin A deficiency 18. Zinc deficiency 19. Dietary surveillance and counseling. 20. Non-compliance to bariatric diet 22. Moderat hepatomegaly with fatty liver disease. 23. Leukocytosis possibly steroid related. Showing improvement. Hospital course Margaret Woodruff is a 35-year-old female who comes with lifelong morbid obesity. As a result of her morbid obesity, she has developed osteoarthritis of the knees, lower back, hips, sleep apnea and hypertensive heart disease. Patient is status post Robotic assisted daVinci Xi laparoscopic sleeve gastrectomy. Her upper GI did show severe hesitancy of contrast passing through the gastric sleeve. However no extravasation or suspicious persistent narrowing is identified. Patient was given IV dexamethasone. Patient is tolerating her bariatric clear liquid diet. She denies any difficulty swallowing. Her pain is controlled. She is up and ambulating. She is having flatus. Denies any difficult urinating. She is afebrile. She is stable for discharge. Physician Mold Capper Helper note has been reviewed by physician. Signing provider agrees with the documented findings, assessment, and plan of care. Patient Condition at Discharge: Stable Plan - Discharge Summary Discharge Rx Participant: No New Discharge Prescriptions: New bisacodyL [Dulcolax] 5 mg PO DAILY PRN #10 tab PRN Reason: Constipation Simethicone 40 mg/0.6 ml Drops [Mylicon Drops] 40 mg PO PCHS PRN #30 ml PRN Reason: Gas Omeprazole [PriLOSEC] 40 mg PO DAILY #30 cap Ondansetron Odt [Zofran Odt] 4 mg PO Q8HR PRN #9 tab PRN Reason: Nausea Scopolamine 1.5MG/72Hr Patch [TransDerm Scop] 1 patch TRANSDERM Q72H patch Acetaminophen Oral Susp [Tylenol] 1,000 mg PO Q6H #400 ml Continue hydroCHLOROthiazide [Hydrodiuril] 50 mg PO QAM Sertraline [Zoloft] 200 mg PO QAM Ferrous Sulfate [Iron (65 MG Elemental)] 325 mg PO DAILY Ubidecarenone [Co Q-10] 100 mg PO DAILY No Action Multivitamins, Thera [Multivitamin (formulary)] 2 tab PO DAILY Ergocalciferol [Vitamin D2 (1250 Mcg = 72783 Iu)] 50,000 unit PO FR Zinc 50 mg PO DAILY Vitamin A Acetate [Vitamin A] 10,000 unit SL DAILY Omeprazole [PriLOSEC] 40 mg PO DAILY #14 cap Discharge Medication List Multivitamins, Thera [Multivitamin (formulary)] 2 tab PO DAILY 11/05/20 [History] Sertraline [Zoloft] 200 mg PO QAM 11/05/20 [History] hydroCHLOROthiazide [Hydrodiuril] 50 mg PO QAM 11/05/20 [History] Ergocalciferol [Vitamin D2 (1250 Mcg = 56494 Iu)] 50,000 unit PO FR 11/06/20 [History] Ferrous Sulfate [Iron (65 MG Elemental)] 325 mg PO DAILY 12/18/20 [History] Ubidecarenone [Co Q-10] 100 mg PO DAILY 12/18/20 [History] Vitamin A Acetate [Vitamin A] 10,000 unit SL DAILY 12/18/20 [History] Zinc 50 mg PO DAILY 12/18/20 [History] Omeprazole [PriLOSEC] 40 mg PO DAILY #14 cap 12/22/20 [Rx] Acetaminophen Oral Susp [Tylenol] 1,000 mg PO Q6H #400 ml 05/13/21 [Rx] Omeprazole [PriLOSEC] 40 mg PO DAILY #30 cap 05/13/21 [Rx] Ondansetron Odt [Zofran Odt] 4 mg PO Q8HR PRN #9 tab 05/13/21 [Rx] Scopolamine 1.5MG/72Hr Patch [TransDerm Scop] 1 patch TRANSDERM Q72H patch 05/13/21 [Rx] Simethicone 40 mg/0.6 ml Drops [Mylicon Drops] 40 mg PO PCHS PRN #30 ml 12/01/21 [Rx] bisacodyL [Dulcolax] 5 mg PO DAILY PRN #10 tab 05/13/21 [Rx] [facility] up [facility]ment(s[facility] [facility] [place] [facility] [place] Patient Instructions/Handouts: Laparoscopic Sleeve Gastrectomy (DC) Activity/Diet/Wound Care/Special Instructions: Wear abdominal binder at all times for comfort. No lifting over 4 pounds in 4 weeks. You May shower. No bath tub soaks for two weeks Use ice along incisions for the today to prevent swelling. No straws or carbonated beverages Open, Cut or crush all pills to the size smaller than a Tic Tac Continue current scopolamine patch for the next 48 hours Hold on taking any vitamins until follow-up with surgeon Discharge Disposition: HOME SELF-CARE
[2021-05-14] MEDS ORDERED: SCOPOLAMINE 1.5MG/72HR PATCH TRANSDERM SCH (11:00)
== END 2021-05-13 13:18 | disposition home or self-care (01) | DRG 621 ==
LOC: 2ORMAIN 10:03 → 4SSUR 17:00
PROVIDERS: ADMIT Surgery Plastic and Reconstructive Surgery; ATTEND Surgery Plastic and Reconstructive Surgery
PROC: 8E0W4CZ Robotic Assisted Procedure of Trunk Region, Percutaneous Endoscopic Approach (ICD-10-PCS; 2021-05-11)
PROC: 0DJ08ZZ Inspection of Upper Intestinal Tract, Via Natural or Artificial Opening Endoscopic (ICD-10-PCS; 2021-05-11)
PROC: 0DB64Z3 Excision of Stomach, Percutaneous Endoscopic Approach, Vertical (ICD-10-PCS; principal; 2021-05-11 11:25)
DX: E66.01 Morbid (severe) obesity due to excess calories (principal); E50.9 Vitamin A deficiency, unspecified; E60 Dietary zinc deficiency; E78.1 Pure hyperglyceridemia; F32.A Depression, unspecified; F41.1 Generalized anxiety disorder; G47.33 Obstructive sleep apnea (adult) (pediatric); K21.9 Gastro-esophageal reflux disease without esophagitis; K44.9 Diaphragmatic hernia without obstruction or gangrene; K76.0 Fatty (change of) liver, not elsewhere classified; I11.9 Hypertensive heart disease without heart failure; M16.0 Bilateral primary osteoarthritis of hip; M17.0 Bilateral primary osteoarthritis of knee; Z20.822 Contact with and (suspected) exposure to COVID-19; Z68.42 Body mass index [BMI] 45.0-49.9, adult; Z85.828 Personal history of other malignant neoplasm of skin; Z87.891 Personal history of nicotine dependence; D72.829 Elevated white blood cell count, unspecified; D50.9 Iron deficiency anemia, unspecified; Z91.19 Patient's noncompliance with other medical treatment and regimen
CPT/HCPCS: 74240; 80051; 81025; 82310; 82565; 83735; 84100; 84520; 85025; 86850; 86900; 86901; 87635; 88307; 94640

== ENCOUNTER → 2021-05-15 | Outpatient (CLI) | payer BC ==
[~2021-05-15] MED LIST changes: -CHLORHEXIDINE GLUCONATE 15 ML CUP MUCOUS MEM PRN; -DEXAMETHASONE SOD PHOSPHATE 4 MG/ML 1 ML VIAL IV ONE; -ENOXAPARIN 40 MG/0.4 ML SYRINGE SQ PRN; -LIDOCAINE 1% (10MG/ML) FOR IV START INTRADERMA PRN; -MIDAZOLAM 2 MG/2 ML VIAL IV PRN; -ONDANSETRON 4 MG/2 ML VIAL IVP ONE; -PANTOPRAZOLE 40 MG/10 ML VIAL IVP PRN; +SODIUM CHLORIDE 0.9% 1,000 ML IV ONE
[2021-05-15 10:13] VITALS: BP 123/80; PULSE 71; RESP 16; TEMP 98.2
== END | disposition home or self-care (01) ==
LOC: PROCWHC3 10:05
PROVIDERS: ATTEND Surgery Plastic and Reconstructive Surgery
DX: E86.0 Dehydration (principal)
CPT/HCPCS: 96360

== ENCOUNTER → 2021-05-20 | Outpatient (CLI) | payer BC ==
[2021-05-20 11:43] VITALS: BP 135/85; PULSE 74; RESP 16; TEMP 98.3
[2021-05-20] MEDS: SODIUM CHLORIDE 0.9% 1,000 ML IV SCH ×2 (11:43→12:39)
== END | disposition home or self-care (01) ==
LOC: PROCWHC3 11:26
PROVIDERS: ATTEND Surgery Plastic and Reconstructive Surgery
DX: E86.0 Dehydration (principal)
CPT/HCPCS: 96360; 96361

== ENCOUNTER → 2021-05-20 | Outpatient (CLI) | payer BC ==
--- NOTE | 2021-05-20 13:34 | P.BASOAP ---
Subjective Progress Note Date: 05/20/21 She is getting fluids. She has inadequate protein and fluid intake. Protein powder advised and making own protein shakes. Pain is better. Recommend labs work 1 month. Diet re-inforced. She still has blurry vision from scopolamine patch. Puckering of skin with massage. Assessment/Plan Plan: Date: Initial Weight: Initial BMI: Current Weight: Current BMI: Type of Surgery: Total Volume in Band: Previous Volume: Volume Removed: Volume Added: Band Size:
[2021-05-20 15:13] VITALS: BMI 44.0
[2021-05-20 15:17] VITALS: BP 135/85; PULSE 74; RESP 16; TEMP 98.3
== END | disposition home or self-care (01) ==
LOC: BARWHC3 11:28
PROVIDERS: ATTEND Surgery Plastic and Reconstructive Surgery
DX: E66.01 Morbid (severe) obesity due to excess calories (principal); Z71.3 Dietary counseling and surveillance; Z68.41 Body mass index [BMI] 40.0-44.9, adult
CPT/HCPCS: 97803; 99211

== ENCOUNTER → 2021-08-05 | Outpatient (CLI) | payer BC ==
[2021-08-05 13:05] VITALS: PULSE 69; TEMP 98; BMI 37.0
--- NOTE | 2021-08-05 14:21 | P.BASOAP ---
Subjective Progress Note Date: 08/05/21 Doing well. She is keeping a food diary Journal. Weight loss is as expected. Protein intake 50-80 g daily. No reflux. No abdominal pain. We'll obtain blood work. Follow-up per three-month cycle. Objective - Vital Signs Vital signs: Vital Signs Temp 98 F 08/05/21 13:04 Pulse 69 08/05/21 13:04 Resp BP Pulse Ox Intake & Output 08/04/21 08/05/21 08/05/21 18:59 06:59 18:59 Weight 93.44 kg Assessment/Plan Plan: Date: 08/05/21 Initial Weight: 108.499 kg Initial BMI: 43.0 Current Weight: 93.44 kg Current BMI: 37.0 Type of Surgery: Total Volume in Band: Previous Volume: Volume Removed: Volume Added: Band Size:
[2021-08-05 16:52] VITALS: BP 165/89
== END | disposition home or self-care (01) ==
LOC: BARWHC3 12:43
PROVIDERS: ATTEND Surgery Plastic and Reconstructive Surgery
DX: E66.01 Morbid (severe) obesity due to excess calories (principal); Z68.37 Body mass index [BMI] 37.0-37.9, adult
CPT/HCPCS: 97803; 99211